=== PATIENT | female | born 1965 | race Caucasian/White ===

== ENCOUNTER 2016-08-15 10:48 | Emergency (ER) | payer SELFPAY ==
[~2016-08-15] VITALS: Ht 154.9 cm; Wt 60.0 kg
[2016-08-15 10:50] VITALS: BP 127/75
[2016-08-15] MEDS ORDERED: METH27TA4 PO (10:57)
[2016-08-15] MEDS ORDERED: ALBU2SYR10 PO (10:57)
--- NOTE | 2016-08-15 11:04 | NUR ---
Pt report received from Triage Nurse.
[2016-08-15] MEDS ORDERED: METOCLOPRAMIDE 10 MG/2 ML (REGLAN) VIAL IV STA (11:21)
[2016-08-15] MEDS ORDERED: SODIUM CHLORIDE FLUSH 10 ML SYR IV PRN (11:25)
[2016-08-15] MEDS ORDERED: SODIUM CHLORIDE FLUSH 3 ML SYR IV PRN (11:25)
[2016-08-15] MEDS ORDERED: diphenhydrAMINE 50 MG/ML INJ (BENADRYL) IV SCH (11:25)
[2016-08-15] MEDS ORDERED: DEXAMETHASONE 10 MG/ML (DECADRON) VIAL IV ONE (11:25)
[2016-08-15] MEDS ORDERED: HYDR-3702 PO (12:05)
[2016-08-15] MEDS ORDERED: SULF1TAB35 PO (12:05)
[2016-08-15] MEDS ORDERED: CEPH-507 PO (12:05)
== END 2016-08-15 12:28 | disposition home or self-care (01) ==
LOC: ED 10:51
DX: L03.211 Cellulitis of face (principal)
CPT/HCPCS: 99282